=== PATIENT | female | born 1970 | race Caucasian/White ===

== ENCOUNTER 2023-09-13 06:48 | Day surgery (SDC) | payer BC, SELFPAY ==
[2023-09-13 13:21] VITALS: BMI 49.8
[2023-09-13 13:26] VITALS: BP 133/66
[2023-09-13 17:15] VITALS: BP 141/72
[2023-09-13 17:30] VITALS: BP 142/73
[2023-09-13 17:45] VITALS: BP 137/64
[2023-09-13 18:00] VITALS: BP 137/64
== END 2023-09-13 18:23 | disposition home or self-care (01) ==
LOC: SDS 06:48
PROVIDERS: ATTENDING PHYSICIAN Orthopaedic Surgery Hand Surgery; FAMILY PHYSICIAN Nurse Practitioner Primary Care
DX: G56.01 Carpal tunnel syndrome, right upper limb (principal)
CPT/HCPCS: 64721

== ENCOUNTER 2023-10-11 06:38 | Day surgery (SDC) | payer BC, SELFPAY ==
[2023-10-11 13:38] VITALS: BMI 50.4
[2023-10-11 13:41] VITALS: BP 132/74; BMI 50.4
[2023-10-11 18:23] VITALS: BP 108/53
[2023-10-11 18:31] VITALS: BP 136/74
[2023-10-11 18:45] VITALS: BP 134/66
[2023-10-11 18:55] VITALS: BP 144/68
[2023-10-11] MEDS: MOTRIN 600 MG PO (19:00)
== END 2023-10-11 19:10 | disposition home or self-care (01) ==
LOC: SDS 06:38
PROVIDERS: ATTENDING PHYSICIAN Orthopaedic Surgery Hand Surgery
DX: G56.02 Carpal tunnel syndrome, left upper limb (principal)
CPT/HCPCS: 64721